=== PATIENT | male | born 1995 | race Caucasian/White ===

== ENCOUNTER 2020-04-15 23:07 | Emergency (ER) | payer OTHER ==
[~2020-04-15] VITALS: Ht 180.3 cm; Wt 102.5 kg
[2020-04-15 23:16] VITALS: Ht 180.3 cm; Wt 102.5 kg
[2020-04-16 04:25] VITALS: BP 117/76
== END 2020-04-16 04:25 | disposition home or self-care (01) ==
LOC: ED 23:07
DX: S10.93XA Contusion of unspecified part of neck, initial encounter (principal); R07.89 Other chest pain; V49.9XXA Car occupant (driver) (passenger) injured in unspecified traffic accident, initial encounter; Y93.89 Activity, other specified; Y92.89 Other specified places as the place of occurrence of the external cause; Y99.8 Other external cause status